=== PATIENT | female | born 1945 | race Hispanic/Latino ===

== ENCOUNTER 2021-01-03 06:26 | Observation (INO) | payer OTHER ==
[2020-12-30 08:09] LABS: BASOPHILS % 0.5 % (0.0-1.0); EOSINOPHILS # (AUTO) 0.2 (0.0-0.4); EOSINOPHILS % 3.5 % (0.0-6.0); HEMATOCRIT 42.5 % (34.2-44.1); HEMOGLOBIN 13.7 g/dL (12.0-16.0); LYMPHOCYTES # (AUTO) 2.1 (1.0-3.2); MEAN CORPUSCULAR HEMOGLOBIN 29.5 pg (28-32); MEAN CORPUSCULAR HGB CONC 32.2 g/dL (31-35); MEAN CORPUSCULAR VOLUME 91.4 fL (81-99); MONOCYTES # (AUTO) 0.5 (0.2-0.8); MONOCYTES % 7.9 % (4.4-11.3); NEUTROPHILS # (AUTO) 3.2 (2.1-6.9); NEUTROPHILS % 53.6 % (38.7-80.0); PLATELET COUNT 187 x10e3/uL (140-360); RED BLOOD COUNT 4.65 x10e6/uL (3.6-5.1); RED CELL DISTRIBUTION WIDTH 12.6 % (11.7-14.4)
[2020-12-30 08:27] LABS: ANION GAP 12.3 mmol/L (8-16); BLOOD UREA NITROGEN 18 mg/dL (7-26); BUN/CREATININE RATIO 24 (6-25); CARBON DIOXIDE 25 mmol/L (22-29); CHLORIDE 108 mmol/L (98-107); CREATININE, SERUM 0.74 mg/dL (0.57-1.11); EST GLOMERULAR FILTRATION RATE > 60 ML/MIN (60-); GLUCOSE 152 mg/dL (74-118); POTASSIUM 4.3 mmol/L (3.5-5.1); SODIUM 141 mmol/L (136-145)
[~2021-01-03] VITALS: Ht 157.5 cm; Wt 100.7 kg
[~2021-01-03 06:26] MED LIST: LEVOTHYROXINE50 MCG PO; LISINOPRIL10 MG PO; METFORMIN HCL500 MG PO; TRANEXAMIC ACID 1,000 MG/10 ML ML ONE; VANCOMYCIN HCL 1,000 MG ONE
[2021-01-03] MEDS ORDERED: CELECOXIB 200 MG CAP ONE (06:38)
[2021-01-03] MEDS ORDERED: DEXAMETHASONE SOD PHOS 10 MG/1 ML VIAL ONE (06:38)
[2021-01-03] MEDS ORDERED: GABAPENTIN 300 MG CAP ONE (06:38)
[2021-01-03] MEDS ORDERED: CEFAZOLIN SOD 1 GM/NS 50ML 100 ML IV ONE (06:39)
[2021-01-03] MEDS ORDERED: SODIUM CHLORIDE 0.9% 500ML 500 ML ONE (06:45)
[2021-01-03] MEDS ORDERED: ROPIVACAINE 246.25 MG, EPINEPHRINE HCL 1:1000 1ML 0.5 MG, CLONIDINE HCL 0.08 MG, KETORO... INJ ONE ×5 (07:30)
[2021-01-03] MEDS ORDERED: KETOROLAC TROMETHAMINE 30 MG/ML VIAL IV PRN (09:00)
[2021-01-03] MEDS: ASPIRIN 325 MG TAB PO SCH ×2 (09:00→16:03)
[2021-01-03] MEDS ORDERED: ONDANSETRON HCL INJ 2MG/ML 2ML 2 MG/ML VIAL IV PRN (09:00)
[2021-01-03] MEDS ORDERED: ACETAMINOPHEN 650 MG SUPP PR PRN (09:00)
[2021-01-03] MEDS ORDERED: DIPHENHYDRAMINE HCL INJ 50 MG/ML VIAL IV PRN (09:00)
[2021-01-03] MEDS ORDERED: HYDROCODONE/APAP 5MG-325MG TAB PO PRN (09:00)
[2021-01-03] MEDS ORDERED: DOCUSATE SODIUM 100 MG CAP PO PRN (09:00)
[2021-01-03] MEDS: CELECOXIB 100 MG CAP PO SCH ×2 (09:00→16:03)
[2021-01-03] MEDS ORDERED: ZOLPIDEM TARTRATE 5 MG TAB PO PRN (09:00)
[2021-01-03] MEDS ORDERED: FENTANYL CITRATE/PF 100MCG/2 ML INJ ONE ×2 (09:44→13:09)
[2021-01-03 12:02] VITALS: BP 122/57
[2021-01-03 12:07] VITALS: BP 122/57
[2021-01-03] MEDS: SODIUM CHLORIDE 0.9% 1000ML 1,000 ML IV SCH ×2 (12:21→16:44)
[2021-01-03] MEDS ORDERED: EPINEPHRINE HCL 1:1000 1ML 1 MG/ML AMP ONE (12:33)
[2021-01-03] MEDS ORDERED: BUPIVACAINE HCL 0.5% INJ 30 ML VIAL INJ ONE (12:33)
[2021-01-03 12:49] VITALS: BP 122/57
[2021-01-03] MEDS ORDERED: MIDAZOLAM HCL 2 MG/2 ML VIAL ONE (13:09)
[2021-01-03] MEDS: CEFAZOLIN SOD 1 GM/NS 50ML 50 ML IV SCH ×2 (14:55→22:06)
[2021-01-03 16:37] VITALS: BP 119/53
[2021-01-03] MEDS ORDERED: LIDOCAINE HCL 2% LOCAL INJ 5 ML SDV VIAL INJ ONE (17:47)
[2021-01-03] MEDS ORDERED: NEOSTIGMINE 1 MG/ML 10ML VIAL ONE (17:47)
[2021-01-03] MEDS ORDERED: ONDANSETRON HCL INJ 2MG/ML 2ML 2 MG/ML VIAL ONE (17:47)
[2021-01-03] MEDS ORDERED: SEVOFLURANE INHAL SOLN 250 ML PEN BTL ONE (17:47)
[2021-01-03] MEDS ORDERED: PROPOFOL IV EMULSION 10 MG/ML 20 ML VIAL ONE (17:47)
[2021-01-03] MEDS ORDERED: ROCURONIUM BROMIDE 10 MG/ML 5ML VIAL IV ONE (17:47)
[2021-01-03] MEDS ORDERED: POVIDONE IODINE 0.05% 0.05 % ML PO ONE (17:47)
[2021-01-03] MEDS ORDERED: DEXAMETHASONE SOD PHOS INJ 4 MG/ML VIAL ONE (17:47)
[2021-01-03] MEDS ORDERED: GLYCOPYRROLATE INJ 0.2 MG/ML VIAL ONE (17:47)
[2021-01-03 20:00] VITALS: BP 104/47
[2021-01-03] MEDS: HYDROCODONE/APAP 7.5MG-325MG 1 EA TAB PO PRN (22:06)
[2021-01-04] VITALS: BP 115/53
[2021-01-04 04:00] VITALS: BP 104/50
[2021-01-04] MEDS: HYDROCODONE/APAP 7.5MG-325MG 1 EA TAB PO PRN (04:12)
[2021-01-04] MEDS: SODIUM CHLORIDE 0.9% 1000ML 1,000 ML IV SCH (05:00)
[2021-01-04 05:18] LABS: HEMATOCRIT 34.7 % (34.2-44.1); HEMOGLOBIN 11.4 g/dL (12.0-16.0)
[2021-01-04] MEDS: CEFAZOLIN SOD 1 GM/NS 50ML 50 ML IV SCH (06:05)
[2021-01-04 08:19] VITALS: BP 124/57
[2021-01-04 09:00] VITALS: BP 124/57
[2021-01-04] MEDS ORDERED: ACETAMINOPHEN 1000 MG/100 ML IV PRN (09:00)
[2021-01-04] MEDS: CELECOXIB 100 MG CAP PO SCH (10:22)
[2021-01-04] MEDS: ASPIRIN 325 MG TAB PO SCH (10:22)
[2021-01-04] MEDS ORDERED: ONDANSETRON HCL 4 MG ORAL DISINTEGRATING TAB PO PRN (12:45)
[2021-01-04] MEDS ORDERED: CELECOXIB 200 MG CAP PO SCH (17:00)
== END 2021-01-04 14:45 | disposition home or self-care (01) ==
LOC: OR 06:26 → PACU V 08:59 → MED/SURG 11:10
PROVIDERS: ADMIT Specialist; ATTEND Specialist
DX: M17.11 Unilateral primary osteoarthritis, right knee (principal); E66.01 Morbid (severe) obesity due to excess calories; Z68.41 Body mass index [BMI] 40.0-44.9, adult; E11.9 Type 2 diabetes mellitus without complications; I10 Essential (primary) hypertension; E05.90 Thyrotoxicosis, unspecified without thyrotoxic crisis or storm; Z90.49 Acquired absence of other specified parts of digestive tract; K21.9 Gastro-esophageal reflux disease without esophagitis; Z01.810 Encounter for preprocedural cardiovascular examination; Z01.812 Encounter for preprocedural laboratory examination; Z01.818 Encounter for other preprocedural examination; Z20.822 Contact with and (suspected) exposure to COVID-19; Z79.84 Long term (current) use of oral hypoglycemic drugs
CPT/HCPCS: 27447; 36415 ×3; 71046; 73560; 80048; 82948 ×2; 85014; 85018; 85025; 86850; 86900; 86920; 97110; 97116 ×2; 97139; 97161; 97530; C1713; G0378 ×2; J0171; J0690 ×2; J1100 ×2; J1885; J2001; J2250; J2405; J2704; J2710; J2795; J3010; J3370; J7030; J7040; U0002